=== PATIENT | female | born 1985 | race Caucasian/White ===

== ENCOUNTER 2023-02-06 07:17 | Day surgery (SDC) | payer BC, SELFPAY ==
--- NOTE | 2023-02-06 06:34 | W.PM.OPSFHP ---
Same Day Surgery H&P Indication for Procedure/HPI DATE OF PROCEDURE: February 06, 2023 CHIEF COMPLAINT/INDICATIONFOR SURGICAL PROCEDURE: peptic ulcer disease PREOP DIAGNOSIS: peptic ulcer diseaase PLANNED PROCEDURE: Operation Date: 02/06/23 08:20 Proposed Procedures p EGD 59844,K27.9(Not Applicable) - Florin Fair MD Medications/Allergies* Home Medications Medication Instructions Recorded Confirmed Type bupropion HCl 100 mg tablet,12 hr 100 mg PO BID 12/12/22 02/04/23 History sustained-release buspirone 10 mg tablet 10 mg PO DAILY 12/12/22 02/04/23 History dexlansoprazole 30 mg 30 mg PO DAILY 12/12/22 02/04/23 History capsule,biphase delayed release dextroamphetamine-amphetamine ER 25 mg PO BID 12/12/22 02/04/23 History 20 mg 24hr capsule,extend release lisinopril 20 mg tablet 20 mg PO BID 12/12/22 02/04/23 History norethindrone-e.estradiol 1 tab PO DAILY 12/12/22 02/04/23 History triphasic 0.5 mg/0.75 mg/1 mg-35 mcg tablet ([place] (28)) ondansetron 4 mg disintegrating 4 mg PO DAILY nausea 12/12/22 02/04/23 History tablet sertraline 100 mg tablet 200 mg PO DAILY 12/12/22 02/04/23 History trazodone 100 mg tablet 100 mg PO DAILY 12/12/22 02/04/23 History Allergies/Adverse Reactions Allergy/AdvReac Type Severity Reaction Status Date / Time NSAIDS (Non-Steroidal Allergy Unknown Verified 02/04/23 14:17 Anti-Inflamma Sulfa (Sulfonamide Allergy Unknown Verified 02/04/23 14:17 Antibiotics) Pertinent Exam Findings alert, oriented x 3, clear to auscultation bilaterally and regular rate & rhythm Recommendations Surgery/Procedure today Coding Level of Care Code Acute Code for Chg Fwd Diagnoses
[2023-02-06 07:35] VITALS: BP 151/106; PULSE 96; RESP 18; TEMP 36.1; O2SAT 98; BMI 51.5
[2023-02-06] MEDS: sodium chloride 0.9% 1,000 ML 30 ML IV (07:40)
[2023-02-06 07:43] LABS: OR HCG Qualitative Urine Negative (Negative)
--- NOTE | 2023-02-06 07:54 | ANES.PREANE2 ---
Pre-Anesthetic Assessment Height/Weight: Height 1.63 m Weight 136.078 kg Temp Pulse Resp BP Pulse Ox O2 Del Method 97.0 F L 96 18 151/106 98 Room Air 02/06/23 07:35 02/06/23 07:35 02/06/23 07:35 02/06/23 07:35 02/06/23 07:35 02/06/23 07:35 Preop Diagnosis: peptic ulcer diseaase Operation Date: 02/06/23 08:20 Proposed Procedures p EGD 64466,K27.9(Not Applicable) - Florin Fair MD Familial anesthetic complications: None Was Beta [place] taken within 24 hours: N/A Was Clonidine taken within 24 hours: N/A Last intake: Intake Last Liquid Date 02/05/23 Last Liquid Time 21:00 Last Solid Date 02/05/23 Last Solid Time 19:00 Social Tobacco and No alcohol Exam alert, oriented x 3, clear to auscultation bilaterally and regular rate & rhythm Airway Mallampati: Class III Dentition: full and other (crown) CV/HEM Hypertension GI Gastroesophageal Reflux Disease and Peptic Ulcer Disease Metabolic Morbid Obesity Anesthetic Plan ASA status: 3 Anesthesia: MAC Risk of > 500 ml blood loss (7ml/kg in children): No Medications/Allergies Home Medications Medication Instructions Recorded Confirmed Last Taken Type bupropion HCl 100 mg tablet,12 hr 100 mg PO BID 12/12/22 02/06/23 02/05/23 History sustained-release buspirone 10 mg tablet 10 mg PO DAILY 12/12/22 02/06/23 02/05/23 History dexlansoprazole 30 mg 30 mg PO DAILY 12/12/22 02/06/23 02/05/23 History capsule,biphase delayed release dextroamphetamine-amphetamine ER 25 mg PO BID 12/12/22 02/06/23 02/05/23 History 20 mg 24hr capsule,extend release lisinopril 20 mg tablet 20 mg PO BID 12/12/22 02/06/23 02/05/23 History norethindrone-e.estradiol 1 tab PO DAILY 12/12/22 02/06/23 02/05/23 History triphasic 0.5 mg/0.75 mg/1 mg-35 mcg tablet (April (28)) ondansetron 4 mg disintegrating 4 mg PO DAILY nausea 12/12/22 02/04/23 Unknown History tablet sertraline 100 mg tablet 200 mg PO DAILY 12/12/22 02/06/23 02/05/23 History sucralfate 1 gram tablet (Carafate) 1 g PO BID #60 tabs 12/12/22 02/04/23 Unknown Rx trazodone 100 mg tablet 100 mg PO DAILY 12/12/22 02/06/23 02/05/23 History Allergies Allergy/AdvReac Type Severity Reaction Status Date / Time NSAIDS (Non-Steroidal Allergy Unknown Verified 02/04/23 14:17 Anti-Inflamma Sulfa (Sulfonamide Allergy Unknown Verified 02/04/23 14:17 Antibiotics) PFSH Anesthesia Female Reproductive History Date of last menstrual period: 01/21/23 Data Anesthesia Cardiac Studies: No Data to Display
[2023-02-06 08:50] VITALS: BP 136/77; PULSE 90; RESP 18; TEMP 36.3; O2SAT 94
[2023-02-06 09:00] VITALS: BP 118/64; PULSE 83; RESP 16; O2SAT 94
--- NOTE | 2023-02-06 09:15 | ANE.PACU2 ---
Inpatient post-anesthesia follow up: Airway intact: Yes Vital signs: Temperature 97.3 F Pulse Rate 83 Respiratory Rate 16 Blood Pressure 118/64 Pulse Oximetry 94 Oxygen Delivery Me thod Room Air Oxygen Flow Rate Fraction of Inspir ed Oxygen Hydration adequate: Yes Nausea and vomiting: No Pain level: 1 Mental status: Baseline
== END 2023-02-06 09:17 | disposition home or self-care (01) ==
PROVIDERS: Anesthesiology; PCP Registered Nurse; Visit Provider Surgery
PROC: 0DJ08ZZ Inspection of Upper Intestinal Tract, Via Natural or Artificial Opening Endoscopic (ICD-10-PCS; CPT 43235; principal; 2023-02-06 08:20)
DX: Z87.11 Personal history of peptic ulcer disease (principal); K44.9 Diaphragmatic hernia without obstruction or gangrene; K29.80 Duodenitis without bleeding; I10 Essential (primary) hypertension; K21.9 Gastro-esophageal reflux disease without esophagitis; E66.01 Morbid (severe) obesity due to excess calories; Z68.43 Body mass index [BMI] 50.0-59.9, adult
CPT/HCPCS: 43239; 81025; 84703; 88305; 88342; J2704; J7030

== ENCOUNTER → 2023-12-30 09:26 | Outpatient (BNVA) | payer BC, SELFPAY | PROVIDERS: PCP Registered Nurse; Visit Provider Specialist | DX: M25.561 Pain in right knee (principal); E66.01 Morbid (severe) obesity due to excess calories | CPT/HCPCS: 73560; 73565 ==

== ENCOUNTER 2024-01-08 06:00 | Outpatient (RCR) | payer BC, SELFPAY | END 2024-02-04 23:59 | disposition home or self-care (01) | LOC: SPT 06:00 | PROVIDERS: Visit Provider Specialist | DX: S89.91XD Unspecified injury of right lower leg, subsequent encounter (principal); X58.XXXD Exposure to other specified factors, subsequent encounter | CPT/HCPCS: 97161 ==